=== PATIENT | female | born 1955 | race Caucasian/White ===

== ENCOUNTER 2019-06-03 08:13 | Emergency (ER) | payer BC ==
[2019-06-03] MEDS ORDERED: methylPREDNISolone Sodium Succinate 125 MG/2 ML SDV IM ONE (08:30)
[2019-06-03] MEDS ORDERED: Albuterol/Ipratropium 3.0-0.5 MG/3 ML Neb Soln NEB ONE (08:30)
--- NOTE | 2019-06-03 08:44 | EDM.PDOC ---
ED HPI GENERAL MEDICAL PROBLEM - General Stated Complaint: dyspnea Time Seen by Provider: 06/03/19 08:20 Source of Information: Reports: Patient - History of Present Illness INITIAL COMMENTS - FREE TEXT/NARRATIVE: Patient presented to the ED because of dyspnea which started last night. She is on home oxygen due to her asthma and end stage COPD. She also c/o pleuritic chest pain which is worse with coughing and breathing. Denies having edema, palpitations. - Related Data Allergies Allergy/AdvReac Type Severity Reaction Status Date / Time No Known Allergies Allergy Verified 06/03/19 09:10 Home Meds: Home Meds oxyCODONE HCl/Acetaminophen [Percocet 5-325 mg Tablet] 1 each PO ASDIRECTED PRN #8 tablet 10/06/13 [Rx] Sulfamethoxazole/Trimethoprim [Sulfamethoxazole-Tmp Ds Tablet] 1 tab PO ASDIRECTED 06/03/19 [History] ED ROS GENERAL - Review of Systems Review Of Systems: See Below Constitutional: Reports: No Symptoms HEENT: Reports: No Symptoms Respiratory: Reports: Shortness of Breath, Cough Cardiovascular: Reports: Chest Pain Endocrine: Reports: No Symptoms GI/Abdominal: Reports: No Symptoms : Reports: No Symptoms ED EXAM, GENERAL - Physical Exam Exam: See Below Exam Limited By: No Limitations General Appearance: Alert, No Apparent Distress Eye Exam: Bilateral Eye: PERRL Ears: Normal External Exam, Normal Canal, Normal TMs Nose: Normal Inspection, Normal Mucosa Throat/Mouth: Normal Inspection, Normal Lips, Normal Gums Head: Atraumatic, Normocephalic Neck: Normal Inspection, Supple, Non-Tender, Full Range of Motion Respiratory/Chest: No Respiratory Distress, Lungs Clear, Normal Breath Sounds, Chest Non-Tender, Wheezing Cardiovascular: Normal Peripheral Pulses, Regular Rate, Rhythm, No Edema, No Gallop Back Exam: Normal Inspection, Full Range of Motion Extremities: Normal Inspection Course - Vital Signs Text/Narrative:: CXR-neg EKG-NSR duoneb solumedrol - Orders/Labs/Meds Orders: Active Orders 24 hr Category Date Time Status EKG Documentation Completion [RC] ASDIRECTED Care 06/03/19 08:44 Active RT Aerosol Therapy [RC] ASDIRECTED Care 06/03/19 08:30 Active Chest 1V Frontal [CR] Stat Exams 06/03/19 08:31 Ordered EKG 12 Lead [EK] Routine Ther 06/03/19 08:44 Ordered Meds: Medications Discontinued Medications Generic Name Dose Route Start Last Admin Trade Name Matt PRN Reason Stop Dose Admin Albuterol/Ipratropium 3 ml 06/03/19 08:30 06/03/19 08:33 Duoneb 3.0-0.5 Mg/3 Ml NEB 06/03/19 08:31 3 ml ONETIME ONE Administration Ibuprofen 800 mg 06/03/19 08:57 Motrin PO 06/03/19 08:58 ONETIME ONE Ibuprofen 800 mg 06/03/19 08:57 Motrin PO 06/03/19 08:58 ONETIME ONE Methylprednisolone Sodium Succinate 125 mg 06/03/19 08:30 06/03/19 08:34 Solu-Medrol IM 06/03/19 08:31 125 mg ONETIME ONE Administration Departure - Departure Time of Disposition: 09:15 Disposition: Home, Self-Care 01 Condition: Good Clinical Impression: COPD exacerbation - Discharge Information *PRESCRIPTION DRUG MONITORING PROGRAM REVIEWED*: No *COPY OF PRESCRIPTION DRUG MONITORING REPORT IN PATIENT ALOK: No Referrals: Jose Manuel Mac MD [Primary Care Provider] - Additional Instructions: Please read discharge instructions on COPD duoneb every 6 hours for 3 days then as needed z-olimpia as directed prednisone 40 mg once daily for 5 days starting this morning follow up if symptoms persist - My Orders Last 24 Hours: My Active Orders 06/03/19 08:30 RT Aerosol Therapy [RC] ASDIRECTED 06/03/19 08:31 Chest 1V Frontal [CR] Stat 06/03/19 08:44 EKG Documentation Completion [RC] ASDIRECTED EKG 12 Lead [EK] Routine - Assessment/Plan Last 24 Hours: My Active Orders 06/03/19 08:30 RT Aerosol Therapy [RC] ASDIRECTED 06/03/19 08:31 Chest 1V Frontal [CR] Stat 06/03/19 08:44 EKG Documentation Completion [RC] ASDIRECTED EKG 12 Lead [EK] Routine
[2019-06-03] MEDS ORDERED: Ibuprofen 800 MG Tab PO ONE ×2 (08:57)
--- NOTE | 2019-06-03 11:19 | CR ---
INDICATION: Dyspnea, COPD, asthma. CHEST: An AP portable upright view of the chest, 06/03/19, was compared with , again revealing the heart to be enlarged. Upper lung field pulmonary vasculature is prominent, suggesting mild or early CHF. A definite consolidating pneumonia or effusion was not identified. Evidence of exogenous obesity is again noted. IMPRESSION: 1. ASHD with cardiomegaly, CHF, possible minimal interstitial lung edema. 2. Exogenous obesity. MTDD
== END 2019-06-03 09:45 | disposition home or self-care (01) ==
LOC: FB.ED 08:13
DX: J44.1 Chronic obstructive pulmonary disease with (acute) exacerbation (principal); Z99.81 Dependence on supplemental oxygen
CPT/HCPCS: 71045; 93005; 94640; 96372; 99285; J2930; J7620-GY

== ENCOUNTER 2021-08-09 13:05 | Emergency (ER) | payer MEDICARE, OTHER ==
[2021-08-09] MEDS ORDERED: Sodium Chloride 0.9% 10 ML Syringe FLUSH PRN (13:22)
[2021-08-09] MEDS ORDERED: Furosemide 40 MG/4 ML VIAL IVPUSH ONE (13:24)
[2021-08-09] MEDS ORDERED: Metolazone 5 MG Tab PO STA (13:24)
[2021-08-09 14:06] LABS: BASE EXCESS VENOUS,POC 6 mmol/L (-2 - 3+); PH VENOUS,POC 7.42 pH Units (7.32-7.43)
[2021-08-09] MEDS ORDERED: Iopamidol 755 Mg/ML 100 ML Bottle IV ONE (14:13)
--- NOTE | 2021-08-09 15:50 | EDM.PDOC ---
ED HPI GENERAL MEDICAL PROBLEM - General Stated Complaint: SOB Time Seen by Provider: 08/09/21 15:15 Source of Information: Reports: Patient History Limitations: Reports: No Limitations - History of Present Illness INITIAL COMMENTS - FREE TEXT/NARRATIVE: Patient is a 66 YO WF who presented to the ED because of dyspnea, wheezing, chills, pleuritic chest pain which started 3-4 days ago and is getting worse. She was seen at the [facility] today and was found to be hypoxemic with oxygen saturation of 80% on RA. Yandel in the ED she desaturates to 60% on %5 LPM just walking to the rest room. She denies having and nausea,vomiting, diarrhea. - Related Data Allergies Allergy/AdvReac Type Severity Reaction Status Date / Time No Known Allergies Allergy Verified 06/03/19 09:10 Home Meds: Home Meds oxyCODONE HCl/Acetaminophen [Percocet 5-325 mg Tablet] 1 each PO ASDIRECTED PRN #8 tablet 10/06/13 [Rx] Albuterol/Ipratropium [DuoNeb 3.0-0.5 MG/3 ML] 3 ml INH Q6H #30 neb 06/03/19 [Rx] Azithromycin [Zithromax] 250 mg PO DAILY #6 tab 06/03/19 [Rx] Sulfamethoxazole/Trimethoprim [Sulfamethoxazole-Tmp Ds Tablet] 1 tab PO ASDIR ECTED 06/03/19 [History] predniSONE [Prednisone] 40 mg PO DAILY #10 tablet 06/03/19 [Rx] Past Medical History HEENT History: Reports: Hard of Hearing, Impaired Vision Respiratory History: Reports: Asthma, COPD, Sleep Apnea, 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: Social & Family History - Family History Family Medical History: Unobtainable - Caffeine Use Caffeine Use: Reports: Soda ED ROS GENERAL - Review of Systems Review Of Systems: See Below Constitutional: Reports: Chills, Malaise, Weakness HEENT: Reports: No Symptoms Respiratory: Reports: Shortness of Breath, Wheezing, Cough Cardiovascular: Reports: No Symptoms Endocrine: Reports: No Symptoms GI/Abdominal: Reports: No Symptoms : Reports: No Symptoms Musculoskeletal: Reports: No Symptoms Skin: Reports: No Symptoms Neurological: Reports: No Symptoms ED EXAM, GENERAL - Physical Exam Exam: See Below Exam Limited By: No Limitations General Appearance: Alert, No Apparent Distress Eye Exam: Bilateral Eye: Proptosis Ears: Normal External Exam, Normal Canal Nose: Normal Inspection, Normal Mucosa, No Blood Throat/Mouth: Normal Inspection, Normal Lips, Normal Teeth, Normal Gums, Normal Oropharynx Head: Atraumatic, Normocephalic Neck: Normal Inspection, Supple, Non-Tender, Full Range of Motion Respiratory/Chest: No Respiratory Distress, Lungs Clear, Rhonchi, Wheezing Cardiovascular: Normal Peripheral Pulses, Regular Rate, Rhythm, No Edema, No JVD, No Murmur GI/Abdominal: Normal Bowel Sounds, Soft, Non-Tender, No Organomegaly Back Exam: Normal Inspection, Full Range of Motion Extremities: Normal Inspection, Normal Range of Motion, Non-Tender Neurological: Alert, Oriented, CN II-XII Intact Course - Vital Signs Text/Narrative:: Lab/CXR/Chest CT result was reviewed and discussed with patient Lasix 40 mg IV X1 Zaroxolyn 5 mg PO x1 Decadron 6 mg IV x1 Last Recorded V/S: Last Vital Signs Temp 36.4 C 08/09/21 13:10 Pulse 76 08/09/21 13:10 Resp 22 H 08/09/21 13:10 BP 127/44 L 08/09/21 13:10 Pulse Ox 85 L 08/09/21 13:10 - Orders/Labs/Meds Orders: Active Orders 24 hr Category Date Time Status Ang Chest [CT] Stat Exams 08/09/21 14:08 Taken Chest 1V Frontal [CR] Stat Exams 08/09/21 13:22 Taken Sodium Chloride 0.9% [Saline Flush] Med 08/09/21 13:22 Active 10 ml FLUSH ASDIRECTED PRN Saline Lock Insert [OM.PC] Routine Oth 08/09/21 13:22 Ordered Medication Orders Sodium Chloride (Sodium Chloride 0.9% 10 Ml Syringe) 10 ml FLUSH ASDIRECTED PRN PRN Reason: Keep Vein Open Last Admin: 08/09/21 16:19 Dose: 10 ml Documented by: [email or web address] Labs: Laboratory Tests 08/09/21 08/09/21 08/09/21 Range/Units 13:39 13:39 13:39 WBC (3.0-10.3) x10-3/uL RBC (3.60-5.20) x10(6)uL Hgb (11.4-15.5) g/dL Hct (34.2-48.2) % MCV (76.7-100.5) fL MCH (23.9-33.9) pg MCHC (31.9-34.8) g/dL RDW (12.3-16.5) % Plt Count (151-488) x10(3)uL MPV (7.1-12.4) fL Neut % (Auto) (30.8-76.2) % Lymph % (Auto) (18.4-52.1) % [place] % (Auto) (4.4-15.7) % Eos % (Auto) (0.6-8.1) % Baso % (Auto) (0.2-1.5) % Neut # (Auto) (1.5-6.3) x10-3/uL Lymph # (Auto) (1.0-4.4) x10-3/uL [place] # (Auto) (0.3-1.0) x10-3/uL Eos # (Auto) (0.0-0.8) x10-3/uL Baso # (Auto) (0.0-0.1) x10-3/uL D-Dimer, Quantitative 1.99 H (0.0-0.59) mg/LFEU POC VBG pH (7.32-7.43) pH Units POC VBG pCO2 (41-51) mmHg POC VBG HCO3 (22-29) mmol/L VBG Base Excess (-2 - 3+) mmol/L O2 Delivery Device Oxygen Flow Rate LPM Sodium 135 (135-145) mmol/L Potassium 3.6 (3.5-5.3) mmol/L Chloride 94 L (100-110) mmol/L Carbon Dioxide 37 H (21-32) mmol/L BUN 13 (7-18) mg/dL Creatinine 1.1 H (0.55-1.02) mg/dL Est Cr Clr Drug Dosing TNP Estimated GFR (MDRD) 50 L (>60) BUN/Creatinine Ratio 11.8 (9-20) Glucose 202 H (80-116) mg/dL Calcium 8.7 (8.6-10.2) mg/dL Total Bilirubin 0.8 (0.1-1.3) mg/dL AST 50 H (5-25) IU/L ALT 31 (12-36) U/L Alkaline Phosphatase 55 L (56-112) IU/L Troponin I 25.3 (4.0-60.3) pg/mL NT-Pro-B Natriuret Pep 341 H (<=125) pg/mL Total Protein 8.0 (6.0-8.0) g/dL Albumin 2.8 L (3.2-4.6) g/dL Globulin 5.2 g/dL Albumin/Globulin Ratio 0.5 08/09/21 08/09/21 Range/Units 13:39 13:45 WBC 6.9 (3.0-10.3) x10-3/uL RBC 4.12 (3.60-5.20) x10(6)uL Hgb 12.5 (11.4-15.5) g/dL Hct 36.8 (34.2-48.2) % MCV 89.4 (76.7-100.5) fL MCH 30.4 (23.9-33.9) pg MCHC 34.0 (31.9-34.8) g/dL RDW 12.9 (12.3-16.5) % Plt Count 166 (151-488) x10(3)uL MPV 8.1 (7.1-12.4) fL Neut % (Auto) 85.6 H (30.8-76.2) % Lymph % (Auto) 9.8 L (18.4-52.1) % [place] % (Auto) 4.4 (4.4-15.7) % Eos % (Auto) 0.0 L (0.6-8.1) % Baso % (Auto) 0.2 (0.2-1.5) % Neut # (Auto) 5.9 (1.5-6.3) x10-3/uL Lymph # (Auto) 0.7 L (1.0-4.4) x10-3/uL [place] # (Auto) 0.3 (0.3-1.0) x10-3/uL Eos # (Auto) 0.0 (0.0-0.8) x10-3/uL Baso # (Auto) 0.0 (0.0-0.1) x10-3/uL D-Dimer, Quantitative (0.0-0.59) mg/LFEU POC VBG pH 7.42 (7.32-7.43) pH Units POC VBG pCO2 79 H (41-51) mmHg POC VBG HCO3 32 H (22-29) mmol/L VBG Base Excess 6 H (-2 - 3+) mmol/L O2 Delivery Device Room air Oxygen Flow Rate 0 LPM Sodium (135-145) mmol/L Potassium (3.5-5.3) mmol/L Chloride (100-110) mmol/L Carbon Dioxide (21-32) mmol/L BUN (7-18) mg/dL Creatinine (0.55-1.02) mg/dL Est Cr Clr Drug Dosing Estimated GFR (MDRD) (>60) BUN/Creatinine Ratio (9-20) Glucose (80-116) mg/dL Calcium (8.6-10.2) mg/dL Total Bilirubin (0.1-1.3) mg/dL AST (5-25) IU/L ALT (12-36) U/L Alkaline Phosphatase (56-112) IU/L Troponin I (4.0-60.3) pg/mL NT-Pro-B Natriuret Pep (<=125) pg/mL Total Protein (6.0-8.0) g/dL Albumin (3.2-4.6) g/dL Globulin g/dL Albumin/Globulin Ratio Meds: Medications Generic Name Dose Route Start Last Admin Trade Name Freq PRN Reason Stop Dose Admin Sodium Chloride 10 ml 08/09/21 13:22 08/09/21 16:19 Sodium Chloride 0.9% 10 Ml Syringe FLUSH 10 ml ASDIRECTED PRN Administration Keep Vein Open Discontinued Medications Generic Name Dose Route Start Last Admin Trade Name Freq PRN Reason Stop Dose Admin Dexamethasone 6 mg 08/09/21 15:59 08/09/21 16:17 Dexamethasone 4 Mg/Ml Sdv IVPUSH 08/09/21 16:00 6 mg NOW STA Administration Furosemide 40 mg 08/09/21 13:24 08/09/21 14:04 Furosemide 40 Mg/4 Ml Vial IVPUSH 08/09/21 13:25 40 mg NOW ONE Administration Iopamidol 100 ml 08/09/21 14:13 08/09/21 15:02 Iopamidol 755 Mg/Ml 100 Ml Bottle IV 08/09/21 14:14 100 ml . DIRECTED ONE Administration Metolazone 5 mg 08/09/21 13:24 08/09/21 14:04 Metolazone 5 Mg Tab PO 08/09/21 13:25 5 mg NOW STA Administration Departure - Departure Time of Disposition: 15:00 Disposition: DC/Tfer to Acute Hospital 02 Condition: Good Clinical Impression: COVID-19 virus infection, Pneumonia due to COVID-19 virus, Hypoxemia, COPD (chronic obstructive pulmonary disease), CHF (congestive heart failure) - Discharge Information Referrals: Lee Ann Torres NP [Primary Care Provider] - Sepsis Event Note (ED) - Evaluation Sepsis Screening Result: No Definite Risk - Focused Exam Vital Signs: Vital Signs Temp Pulse Resp BP Pulse Ox 08/09/21 13:10 36.4 C 76 22 H 127/44 L 85 L - My Orders Last 24 Hours: My Active Orders 08/09/21 13:22 Chest 1V Frontal [CR] Stat Sodium Chloride 0.9% [Saline Flush] 10 ml FLUSH ASDIRECTED PRN Saline Lock Insert [OM.PC] Routine 08/09/21 14:08 Ang Chest [CT] Stat - Assessment/Plan Last 24 Hours: My Active Orders 08/09/21 13:22 Chest 1V Frontal [CR] Stat Sodium Chloride 0.9% [Saline Flush] 10 ml FLUSH ASDIRECTED PRN Saline Lock Insert [OM.PC] Routine 08/09/21 14:08 Ang Chest [CT] Stat
[2021-08-09] MEDS ORDERED: Dexamethasone 4 MG/ML SDV IVPUSH STA (15:59)
--- NOTE | 2021-08-09 20:57 | CR ---
CHEST X-RAY INSPIRATION AND EXPIRATION INDICATION: Cough, dyspnea. FINDINGS: Inspiration and expiration AP upright portable views of the chest were obtained 08/09/21 and compared with 02/21/16 portable and 06/03/19 portable. Moderately extensive infiltration is noted in the left upper middle through lower lung field with a somewhat peripheral appearance raising question of viral pneumonia/COVID-19. Minimal infiltrate is suggested on the right in the mid to lower lung field, but not as well visualized. No definite pneumothorax was identified. The heart appears enlarged. No definite evidence of CHF if seen at this time. IMPRESSION: 1. Bilateral infiltration, much more severe on the left and the appearance raises question of COVID-19 pneumonia - correlate clinically. 2. ASHD with mild cardiomegaly. 3. Exogenous obesity. MTDD
[2021-08-10 10:37] LABS: PCO2 VENOUS,POC 49 mmHg (41-51)
== END 2021-08-09 16:40 ==
LOC: FB.ED 13:05
DX: U07.1 COVID-19 (principal); J12.82 Pneumonia due to coronavirus disease 2019; R09.02 Hypoxemia; J44.9 Chronic obstructive pulmonary disease, unspecified; I50.9 Heart failure, unspecified; Z79.899 Other long term (current) drug therapy
CPT/HCPCS: 36415; 71045; 71275; 80053; 83880; 84484; 85025; 85379; 96374; 96375; 99285-25; A9270-GY; J1100; J1940; Q9967

== ENCOUNTER 2021-08-24 12:41 | Inpatient (IN) | payer MEDICARE, OTHER ==
[2021-08-24] MEDS ORDERED: Albuterol 8 GM Inhaler INH PRN (15:35)
[2021-08-24] MEDS: Carvedilol 6.25 MG Tab PO SCH (17:52)
[2021-08-24] MEDS: Nystatin Topical Powder 15 GM Bottle TOP SCH (20:40)
[2021-08-25] MEDS: Carvedilol 6.25 MG Tab PO SCH ×2 (08:38→18:12)
[2021-08-25] MEDS: metFORMIN 500 MG Tab.ER PO SCH (08:41)
[2021-08-25] MEDS: atorvaSTATin 20 MG Tab PO SCH (08:42)
[2021-08-25] MEDS: glipiZIDE 5 MG Tab.ER PO SCH (08:42)
[2021-08-25] MEDS: Furosemide 40 MG Tab PO SCH (08:43)
[2021-08-25] MEDS: Losartan 25 MG Tab PO SCH (08:43)
[2021-08-25] MEDS: Formoterol/Mometasone 200-5 MCG 8.8 GM Inhaler IH SCH ×2 (08:44→20:26)
[2021-08-25] MEDS: Tiotropium Bromide 4 GM Inhalation Spray (2.5mcg/1 dose; 10 doses) INH SCH (08:45)
[2021-08-25] MEDS: Nystatin Topical Powder 15 GM Bottle TOP SCH ×2 (08:45→20:25)
[2021-08-26] MEDS: Carvedilol 6.25 MG Tab PO SCH (09:30)
[2021-08-26] MEDS: glipiZIDE 5 MG Tab.ER PO SCH (09:31)
[2021-08-26] MEDS: metFORMIN 500 MG Tab.ER PO SCH (09:32)
[2021-08-26] MEDS: atorvaSTATin 20 MG Tab PO SCH (09:33)
[2021-08-26] MEDS: Furosemide 40 MG Tab PO SCH (09:33)
[2021-08-26] MEDS: Tiotropium Bromide 4 GM Inhalation Spray (2.5mcg/1 dose; 10 doses) INH SCH (09:34)
[2021-08-26] MEDS: Losartan 25 MG Tab PO SCH (09:34)
[2021-08-26] MEDS: Formoterol/Mometasone 200-5 MCG 8.8 GM Inhaler IH SCH (09:34)
[2021-08-26] MEDS: Nystatin Topical Powder 15 GM Bottle TOP SCH (09:35)
[2021-09-01] MEDS ORDERED: metFORMIN 500 MG Tab.ER PO SCH (09:00)
[2021-09-08] MEDS ORDERED: metFORMIN 500 MG Tab.ER PO SCH (09:00)
[2021-09-15] MEDS ORDERED: metFORMIN 500 MG Tab.ER PO SCH (09:00)
== END 2021-08-26 16:50 | disposition home or self-care (01) | DRG 947 ==
LOC: FB.MS 14:54
PROVIDERS: ADMIT Family Medicine; ATTEND Student in an Organized Health Care Education/Training Program
DX: R53.81 Other malaise (principal); U07.1 COVID-19; J18.9 Pneumonia, unspecified organism; E11.9 Type 2 diabetes mellitus without complications; I10 Essential (primary) hypertension; G47.33 Obstructive sleep apnea (adult) (pediatric); H54.7 Unspecified visual loss; H91.90 Unspecified hearing loss, unspecified ear; J44.9 Chronic obstructive pulmonary disease, unspecified; Z86.19 Personal history of other infectious and parasitic diseases; Z79.899 Other long term (current) drug therapy; Z79.84 Long term (current) use of oral hypoglycemic drugs
CPT/HCPCS: 82947; 90686; 97116-GP; 97161-GP; 97166-GO; 97530-GP; 97535-GO; A9270-GY; G0008

== ENCOUNTER 2025-04-07 06:59 | Day surgery (SDC) | payer MEDICARE, OTHER ==
[~2025-04-07 06:59] MED LIST: Sodium Chloride 0.9% 10 ML Syringe FLUSH PRN
[2025-04-07] MEDS ORDERED: Midazolam 1 MG/ML 2 ML SDV IV ONE (07:00)
[2025-04-07] MEDS ORDERED: fentaNYL 100 MCG/2 ML SDV IV ONE (07:00)
[2025-04-07] MEDS: Lactated Ringers 1,000 ML IV PRN (07:50)
[2025-04-07] MEDS: acetaZOLAMIDE 500 MG Cap.ER PO ONE (08:50)
== END 2025-04-07 09:10 | disposition home or self-care (01) ==
LOC: FB.SDS 06:59
PROVIDERS: ATTEND Ophthalmology
DX: E11.36 Type 2 diabetes mellitus with diabetic cataract (principal); H26.9 Unspecified cataract; I11.0 Hypertensive heart disease with heart failure; I50.9 Heart failure, unspecified; E66.9 Obesity, unspecified; Z87.891 Personal history of nicotine dependence; Z68.42 Body mass index [BMI] 45.0-49.9, adult; Z79.84 Long term (current) use of oral hypoglycemic drugs; Z79.899 Other long term (current) drug therapy
CPT/HCPCS: 00142; 66984; 82947; A9270; J2250; J3010; J7120; V2632

== ENCOUNTER 2025-05-17 05:29 | Inpatient (IN) | payer MEDICARE ==
[2025-05-17] MEDS: methylPREDNISolone Sodium Succinate 125 MG/2 ML SDV IVPUSH ONE (05:54)
[2025-05-17] MEDS: Sodium Chloride 0.9% 10 ML Syringe FLUSH PRN (05:57)
[2025-05-17 06:11] LABS: MEAN PLATELET VOLUME 8.8 fL (7.1-12.4); PLATELET COUNT,PLT 283 x10(3)uL (151-488); RED BLOOD CELL COUNT 4.16 x10(6)uL (3.60-5.20); RED CELL DISTRIBUTION WIDTH 13.9 % (12.3-16.5); WHITE BLOOD CELL COUNT,WBC 20.6 x10-3/uL (3.0-10.3)
[2025-05-17 06:14] LABS: BASE EXCESS ARTERIAL,POC 1 mmol/L (-2 - 3+); HCO3 ARTERIAL,POC 29 mmol/L (21-28); O2 SATURATION ARTERIAL,POC 90.9 % (94-98); PO2 ARTERIAL,POC 70 mmHg (83-108)
[2025-05-17 06:19] LABS: BLOOD UREA NITROGEN,BUN 19 mg/dL (7-18); CARBON DIOXIDE,CO2 29 mmol/L (21-32); CHLORIDE,CL 101 mmol/L (100-110); CREATININE 1.1 mg/dL (0.55-1.02); ESTIMATED GFR 54 mL/min (>60); GLUCOSE RANDOM 238 mg/dL (80-116); POTASSIUM,K 3.5 mmol/L (3.5-5.3); SODIUM,NA 139 mmol/L (135-145)
[2025-05-17 06:25] LABS: A/G RATIO 0.6; ALANINE AMINOTRANSFERASE,ALT 44 U/L (12-36); ASPARTATE AMNIOTRANSFERASE,AST 37 IU/L (5-25); BILIRUBIN TOTAL 1.2 mg/dL (0.1-1.3); PROTEIN TOTAL,TP 8.1 g/dL (6.0-8.0)
[2025-05-17 06:29] LABS: BAND PERCENT MAN 4 % (0-6); LYMPHOCYTES PERCENT MAN 11 % (13-37); MONOCYTES PERCENT MAN 7 % (4-12); SEG NEUTROPHILS PERCENT MAN 78 % (46-82)
[2025-05-17 06:30] LABS: PRO B-TYPE NATRIUR PEPT,BNPPRO 572.0 pg/mL (<=125)
[2025-05-17 06:37] LABS: LACTIC ACID 1.8 mmol/L (0.4-2.0)
[2025-05-17] MEDS ORDERED: 50% Dextrose in Water 50 ML Syringe IVPUSH PRN (06:53)
[2025-05-17 07:02] LABS: INFLUENZA A NAA NEGATIVE (NEGATIVE); INFLUENZA B NAA NEGATIVE (NEGATIVE); RESPIRATORY SYNCYTIAL VIR NAA NEGATIVE (NEGATIVE)
[2025-05-17 07:04] LABS: CORONAVIRUS COVID-19 NAA NEGATIVE (NEGATIVE)
[2025-05-17] MEDS: Insulin Lispro 100 Unit/ML 3 ML KwikPen SUBCUT SCH (08:03)
[2025-05-17] MEDS: hydrOXYzine HCl 50 MG/ML SDV IM ONE (09:19)
[2025-05-17 10:55] LABS: BASE EXCESS ARTERIAL,POC 0 mmol/L (-2 - 3+); HCO3 ARTERIAL,POC 27 mmol/L (21-28); O2 SATURATION ARTERIAL,POC 93.2 % (94-98); PO2 ARTERIAL,POC 74 mmHg (83-108)
[2025-05-17] MEDS: Heparin Sodium/0.45% NaCl 25,000 UNITS/500 ML BAG IV SCH (11:58)
[2025-05-17] MEDS: Iopamidol 755 Mg/ML 100 ML Bottle IV SCH (12:04)
[2025-05-18] MEDS ORDERED: Tiotropium Bromide 4 GM Inhalation Spray (2.5mcg/1 dose; 10 doses) INH SCH (09:00)
== END 2025-05-17 12:48 | DRG 280 ==
LOC: FB.ED 05:29 → SUPCPDRO 05:29 → FB.MS 06:53
PROVIDERS: ADMIT Family Medicine; ATTEND Internal Medicine
PROC: 4A133R1 Monitoring of Arterial Saturation, Peripheral, Percutaneous Approach (ICD-10-PCS; principal; 2025-05-17)
PROC: 3E03329 Introduction of Other Anti-infective into Peripheral Vein, Percutaneous Approach (ICD-10-PCS; 2025-05-17)
DX: I21.A1 Myocardial infarction type 2 (principal); J44.1 Chronic obstructive pulmonary disease with (acute) exacerbation; J96.21 Acute and chronic respiratory failure with hypoxia; J96.22 Acute and chronic respiratory failure with hypercapnia; J44.0 Chronic obstructive pulmonary disease with (acute) lower respiratory infection; Z68.41 Body mass index [BMI] 40.0-44.9, adult; J18.9 Pneumonia, unspecified organism; I21.4 Non-ST elevation (NSTEMI) myocardial infarction; G47.33 Obstructive sleep apnea (adult) (pediatric); I50.9 Heart failure, unspecified; H26.9 Unspecified cataract; H91.90 Unspecified hearing loss, unspecified ear; H54.7 Unspecified visual loss; E66.9 Obesity, unspecified; J44.89 Other specified chronic obstructive pulmonary disease; I11.0 Hypertensive heart disease with heart failure; M19.90 Unspecified osteoarthritis, unspecified site; E78.00 Pure hypercholesterolemia, unspecified; Z90.89 Acquired absence of other organs; Z98.890 Other specified postprocedural states; Z98.49 Cataract extraction status, unspecified eye; Z99.89 Dependence on other enabling machines and devices; E11.9 Type 2 diabetes mellitus without complications; Z79.899 Other long term (current) drug therapy; Z87.891 Personal history of nicotine dependence; Z79.84 Long term (current) use of oral hypoglycemic drugs
CPT/HCPCS: 36415; 71250; 80053; 82803; 83605; 83880; 84484; 85025; 86140; 87040 ×2; 87637; 93005; 96374; 96375; 99285; A9270; J0456; J0696; J7050; 71275; 82947; 85379; 85730; 94150; 94640; 99223; J1644; J1650; J2919; J7030; Q9967